=== PATIENT | female | born 1980 | race Caucasian/White ===

== ENCOUNTER → 2017-11-27 | Outpatient (CLI) | payer OTHER ==
[2017-11-27 12:12] LABS: BASO # 0.1 10^3/uL (0.0-0.2); BASO % 0.6 % (0.0-1.0); EOS # 0.3 10^3/uL (0.0-0.50); EOS % 3.1 % (0.0-3.0); HEMATOCRIT 45.2 % (36.0-47.0); IMMATURE GRANULOCYTE # 0.1 10^3/uL (0-0); IMMATURE GRANULOCYTE % 0.8 % (0-3.0); LYMPH # 2.3 10^3/uL (1.5-4.5); LYMPH % 25.9 % (24.0-44.0); MEAN CORPUSCULAR HGB CONC 33.2 g/dl (32.0-36.5); MEAN CORPUSCULAR VOLUME 96.4 fl (80.0-96.0); MONO # 0.8 10^3/uL (0.0-0.8); MONO % 8.7 % (0.0-5.0); NEUTROPHILS # 5.3 10^3/uL (1.8-7.7); NEUTROPHILS % 60.9 % (36.0-66.0); PLATELET COUNT, AUTOMATED 257 10^3/uL (150-450); RED BLOOD COUNT 4.69 10^6/uL (4.00-5.40); RED CELL DISTRIBUTION WIDTH 13.7 % (11.5-14.5); WHITE BLOOD COUNT 8.7 10^3/uL (4.0-10.0)
[2017-11-27 12:47] LABS: ALBUMIN 3.6 GM/DL (3.2-5.2); ALBUMIN/GLOBULIN RATIO 1.13 (1.00-1.93); ALKALINE PHOSPHATASE 83 U/L (45-117); ALT/SGPT 31 U/L (12-78); ANION GAP 9 MEQ/L (8-16); AST/SGOT 20 U/L (7-37); BILIRUBIN,TOTAL 0.5 MG/DL (0.2-1.0); BLOOD UREA NITROGEN 13 MG/DL (7-18); CALCIUM LEVEL 8.7 MG/DL (8.5-10.1); CARBON DIOXIDE LEVEL 26 MEQ/L (21-32); CHLORIDE LEVEL 110 MEQ/L (98-107); CHOLESTEROL LEVEL 171 MG/DL (<200); CHOLESTEROL RISK RATIO 4.885 (<5); CREATININE FOR GFR 0.76 MG/DL (0.55-1.30); GLOMERULAR FILTRATION RATE > 60.0 (>60); GLUCOSE, FASTING 87 MG/DL (70-100); HDL CHOLESTEROL 35 MG/DL (>40); NON-HDL-C 136 MG/DL; POTASSIUM SERUM 4.2 MEQ/L (3.5-5.1); SODIUM LEVEL 145 MEQ/L (136-145); THYROID STIMULATING HORMONE 0.771 uIU/ML (0.358-3.740); TOTAL PROTEIN 6.8 GM/DL (6.4-8.2); TRIGLYCERIDES LEVEL 150 MG/DL (<150)
== END ==
LOC: M LAB 11:25
DX: Z00.00 Encounter for general adult medical examination without abnormal findings (principal)
CPT/HCPCS: 84443

== ENCOUNTER → 2017-12-07 | Outpatient (CLI) | payer OTHER ==
[2017-12-07 17:03] LABS: ESTIMATED AVERAGE GLUCOSE 111 MG/DL (60-110); HEMOGLOBIN A1c 5.5 %
== END ==
LOC: M LAB 15:56
DX: Z00.00 Encounter for general adult medical examination without abnormal findings (principal)
CPT/HCPCS: 83036

== ENCOUNTER → 2018-05-01 | Outpatient (REF) | payer OTHER ==
[2018-05-01 22:18] LABS: APPEARANCE, URINE HAZY (CLEAR); BACTERIA, URINE AUTO NEGATIVE (NEGATIVE); BILIRUBIN, URINE AUTO NEGATIVE (NEGATIVE); BLOOD, URINE BLOOD 2+ (NEGATIVE); COLOR, URINE YELLOW (YELLOW); GLUCOSE, URINE (UA) AUTO NEGATIVE (NEGATIVE); KETONE, URINE AUTO TRACE mg/dL (NEGATIVE); LEUKOCYTE ESTERASE, URINE AUTO TRACE (NEGATIVE); MUCUS, URINE SMALL (NEGATIVE); NITRITE, URINE AUTO NEGATIVE (NEGATIVE); PROTEIN, URINE AUTO NEGATIVE (NEGATIVE); RBC, URINE AUTO 22 /HPF (0-3); SPECIFIC GRAVITY URINE AUTO 1.033 (1.002-1.035); SQUAMOUS EPITHELIAL CELL UR AU 6 /HPF (0-6); WBC, URINE AUTO 1 /HPF (0-3)
== END ==
LOC: M LAB REF 09:18
DX: N39.0 Urinary tract infection, site not specified (principal)
CPT/HCPCS: 81001

== ENCOUNTER → 2018-09-17 | Outpatient (REF) | payer MEDICAID, OTHER ==
[2018-09-17 20:58] LABS: CHLAMYDIA DNA AMPLIFICATION NEGATIVE (NEGATIVE); GC DNA AMPLIFICATION NEGATIVE (NEGATIVE)
== END ==
LOC: M LAB REF 17:49
PROVIDERS: ATTEND Physician Assistant Medical
DX: Z11.3 Encounter for screening for infections with a predominantly sexual mode of transmission (principal)

== ENCOUNTER → 2020-04-28 | Outpatient (REF) | payer OTHER | LOC: M LAB REF 19:57 | PROVIDERS: ATTEND Physician Assistant | DX: R30.0 Dysuria (principal) ==

== ENCOUNTER 2020-08-18 05:08 | Emergency (ER) | payer OTHER ==
[~2020-08-18] VITALS: Ht 165.1 cm; Wt 109.7 kg
[2020-08-18 05:09] VITALS: BP 154/88
[2020-08-18] MEDS ORDERED: AUGM875T28 PO (06:10)
[2020-08-18] MEDS ORDERED: PRED20TA PO (06:10)
== END 2020-08-18 06:20 | disposition home or self-care (01) ==
LOC: M ED 05:08
DX: J36 Peritonsillar abscess (principal); I10 Essential (primary) hypertension; F17.200 Nicotine dependence, unspecified, uncomplicated

== ENCOUNTER 2020-09-17 20:14 | Emergency (ER) | payer OTHER ==
[~2020-09-17] VITALS: Ht 162.6 cm; Wt 109.0 kg
[~2020-09-17 20:14] MED LIST: AUGM875T28 PO; PRED20TA PO
[2020-09-17] MEDS ORDERED: MONT10TA10 (20:27)
[2020-09-17] MEDS ORDERED: VITA50005 (20:27)
[2020-09-17] MEDS ORDERED: HYDR-3490 (20:27)
[2020-09-17] MEDS ORDERED: AMOX875T (20:27)
[2020-09-17] MEDS ORDERED: FLUTICASONE PROP 0.05% NASAL SPRAY 16 GM (FLONASE) NARES STA (21:46)
[2020-09-17] MEDS ORDERED: MAGIC MOUTHWASH SUSPENSION BTL SS STA (21:46)
[2020-09-17] MEDS ORDERED: BENZONATATE 100 MG CAP PO ONE (21:50)
--- NOTE | 2020-09-17 22:29 | REPVR ---
PROCEDURE INFORMATION: Exam: XR Chest Exam date and time: 09/17/20 (9:54pm) Age: 40 years old Clinical indication: Cough TECHNIQUE: Imaging protocol: XR of the chest Views: 2 views COMPARISON: No relevant prior studies available FINDINGS: Lungs: Unremarkable. No consolidation. Pleural spaces: Unremarkable. No pleural effusions. No pneumothorax. Heart/Mediastinum: Unremarkable. No cardiomegaly. Bones/joints: Unremarkable. IMPRESSION: No acute findings. Clear lung fernandez. Electronically signed by: Shweta Malcolm On 09/17/2020 22:29:45 PM
[2020-09-17 22:40] LABS: BASO # 0.1 10^3/uL (0.0-0.2); BASO % 0.5 % (0.0-1.0); EOS # 0.2 10^3/uL (0.0-0.5); EOS % 1.5 % (0.0-3.0); HEMATOCRIT 45.9 % (36.0-47.0); LYMPH # 2.4 10^3/uL (1.5-5.0); LYMPH % 19.3 % (24.0-44.0); MEAN CORPUSCULAR HEMOGLOBIN 32.1 pg (27.0-33.0); MEAN CORPUSCULAR HGB CONC 32.7 g/dl (32.0-36.5); MEAN CORPUSCULAR VOLUME 98.3 fl (80.0-96.0); MONO # 1.1 10^3/uL (0.0-0.8); MONO % 8.6 % (2.0-8.0); NEUTROPHILS # 8.6 10^3/uL (1.5-8.5); NEUTROPHILS % 69.3 % (36.0-66.0); PLATELET COUNT, AUTOMATED 274 10^3/uL (150-450); RED BLOOD COUNT 4.67 10^6/uL (4.00-5.40); WHITE BLOOD COUNT 12.4 10^3/uL (4.0-10.0)
[2020-09-17 22:59] LABS: ERYTHROCYTE SEDIMENTATION RATE 3 mm/hr (0-20)
[2020-09-17 23:02] LABS: C REACTIVE PROTEIN QUANTITATIV 0.57 MG/DL (0.00-0.30)
[2020-09-17 23:07] LABS: MONO REFLEX EBV COMP NEGATIVE (NEGATIVE)
[2020-09-17 23:14] LABS: RSV AMPLIFICATION NEGATIVE (NEGATIVE)
[2020-09-17] MEDS ORDERED: MAGICMW SSP (23:36)
[2020-09-17] MEDS ORDERED: FLON1SPR NARES (23:36)
[2020-09-18 00:12] VITALS: BP 144/87
[2020-09-20 13:09] LABS: EBV AB TO NUCLEAR ANTIGEN >600.0 U/mL (0.0-17.9); EBV VIRAL CAPSID AG IgG >600.0 U/mL (0.0-17.9); EBV VIRAL CAPSID AG IgM <36.0 U/mL (0.0-35.9)
== END 2020-09-18 00:15 | disposition home or self-care (01) ==
LOC: M ED 20:14
DX: R07.0 Pain in throat (principal); F17.200 Nicotine dependence, unspecified, uncomplicated

== ENCOUNTER → 2021-07-13 | Outpatient (CLI) | payer OTHER ==
[~2021-07-13] MED LIST changes: +AMOX875T; +ERGO500029; +FLON1SPR NARES; +HYDR-3490; +MAGICMW SSP; +MONT10TA97
== END ==
LOC: M WHC 09:03
PROVIDERS: ATTEND Advanced Practice Midwife
DX: Z12.31 Encounter for screening mammogram for malignant neoplasm of breast (principal)

== ENCOUNTER → 2021-07-13 | Outpatient (REF) | payer OTHER | LOC: M SFHCWAGY 17:02 | PROVIDERS: ATTEND Advanced Practice Midwife | DX: R87.613 High grade squamous intraepithelial lesion on cytologic smear of cervix (HGSIL) (principal); Z12.4 Encounter for screening for malignant neoplasm of cervix ==

== ENCOUNTER → 2021-09-28 | Outpatient (REF) | payer OTHER | LOC: M LAB REF 19:49 | PROVIDERS: ATTEND Physician Assistant | DX: J02.9 Acute pharyngitis, unspecified (principal) ==

== ENCOUNTER → 2021-11-02 | Outpatient (REF) | payer OTHER | LOC: M SFHCWAGY 17:19 | PROVIDERS: ATTEND Obstetrics & Gynecology | DX: R87.613 High grade squamous intraepithelial lesion on cytologic smear of cervix (HGSIL) (principal) ==

== ENCOUNTER → 2022-01-18 | Outpatient (CLI) | payer OTHER | LOC: M LABSMTC 10:45 | PROVIDERS: ATTEND Anesthesiology | DX: Z01.818 Encounter for other preprocedural examination (principal); Z11.52 Encounter for screening for COVID-19 ==

== ENCOUNTER 2022-01-23 14:08 | Day surgery (SDC) | payer OTHER ==
[~2022-01-23] VITALS: Ht 12.7 cm; Wt 2.0 kg
[2022-01-23] MEDS ORDERED: LR 1,000 ML IV SCH (14:30)
[2022-01-23 14:36] LABS: HEMATOCRIT 44.5 % (36.0-47.0); HEMOGLOBIN 14.8 g/dl (12.0-15.5); MEAN CORPUSCULAR HEMOGLOBIN 32.2 pg (27.0-33.0); MEAN CORPUSCULAR HGB CONC 33.3 g/dl (32.0-36.5); MEAN CORPUSCULAR VOLUME 96.9 fl (80.0-96.0); PLATELET COUNT, AUTOMATED 304 10^3/uL (150-450); RED BLOOD COUNT 4.59 10^6/uL (4.00-5.40); WHITE BLOOD COUNT 11.5 10^3/uL (4.0-10.0)
[2022-01-23 15:11] LABS: HCG, SERUM QUALITATIVE NEGATIVE (NEGATIVE)
[2022-01-23] MEDS ORDERED: LIDOCAINE 2% 100MG/5ML SDV (FOR ANES.) As Ordered ONE (16:20)
[2022-01-23] MEDS ORDERED: MIDAZOLAM INJ 2MG/2ML VIAL (J2250 PER 1MG) As Ordered ONE (16:20)
[2022-01-23] MEDS ORDERED: propofoL 200 MG/20 ML VIAL As Ordered ONE ×4 (16:20→17:30)
[2022-01-23] MEDS ORDERED: ONDANSETRON 4MG 2ML VIAL As Ordered ONE (16:22)
[2022-01-23] MEDS ORDERED: KETAMINE HCL 200 MG/20 ML VIAL As Ordered ONE ×2 (16:53→17:02)
[2022-01-23] MEDS ORDERED: LIDOCAINE W/EPINEPHRINE 1% 20ML VIAL As Ordered ONE (17:02)
[2022-01-23] MEDS ORDERED: IODINE STRONG SOLN 15 ML BTL As Ordered ONE (17:21)
[2022-01-23] MEDS ORDERED: KETOROLAC 60MG 2ML VIAL As Ordered ONE (17:25)
[2022-01-23] MEDS ORDERED: fentaNYL 100 MCG/2 ML INJECTION As Ordered ONE (17:27)
[2022-01-23] MEDS ORDERED: OXYC1TAB23 PO (17:58)
[2022-01-23 18:30] VITALS: BP 162/96
== END 2022-01-23 18:35 | disposition home or self-care (01) ==
LOC: M SDC 14:08
PROVIDERS: ATTEND Obstetrics & Gynecology
DX: D06.9 Carcinoma in situ of cervix, unspecified (principal); I10 Essential (primary) hypertension; F17.210 Nicotine dependence, cigarettes, uncomplicated; R51.9 Headache, unspecified
CPT/HCPCS: 36415; 57522; 84703; 85027; 86850; 86900; 86901; 88307; 88342; J1885; J2250; J2405; J3010

== ENCOUNTER 2022-06-08 09:58 | Emergency (ER) | payer OTHER ==
[~2022-06-08] VITALS: Ht 165.1 cm; Wt 120.6 kg
[~2022-06-08 09:58] MED LIST changes: +OXYC1TAB23 PO
[2022-06-08] MEDS ORDERED: ACET500P3 PO (10:21)
[2022-06-08] MEDS ORDERED: NAPR220C14 PO (10:21)
[2022-06-08] MEDS ORDERED: NS 1,000 ML IV ONE (15:35)
[2022-06-08] MEDS ORDERED: KETOROLAC 30 MG/ML 1ML VIAL IV ONE (15:35)
[2022-06-08] MEDS ORDERED: diphenhydrAMINE 50MG/ML VIAL IV ONE (15:35)
[2022-06-08] MEDS ORDERED: METOCLOPRAMIDE INJ 10MG/2ML VIAL IV ONE (15:35)
[2022-06-08 17:58] VITALS: BP 142/84
== END 2022-06-08 18:35 | disposition home or self-care (01) ==
LOC: M ED 09:58
DX: G43.909 Migraine, unspecified, not intractable, without status migrainosus (principal); I10 Essential (primary) hypertension; F41.9 Anxiety disorder, unspecified; F17.200 Nicotine dependence, unspecified, uncomplicated; Z79.1 Long term (current) use of non-steroidal anti-inflammatories (NSAID)

== ENCOUNTER → 2023-01-24 | Outpatient (CLI) | payer OTHER ==
[~2023-01-24] MED LIST changes: +ACET500P3 PO; +NAPR220C14 PO
== END ==
LOC: M WHC 15:36
PROVIDERS: ATTEND Nurse Practitioner Family
DX: Z12.31 Encounter for screening mammogram for malignant neoplasm of breast (principal)

== ENCOUNTER → 2023-04-25 | Outpatient (REF) | payer OTHER | LOC: M SFHCWAGY 15:43 | PROVIDERS: ATTEND Nurse Practitioner Family | DX: Z12.4 Encounter for screening for malignant neoplasm of cervix (principal); Z87.410 Personal history of cervical dysplasia; R87.613 High grade squamous intraepithelial lesion on cytologic smear of cervix (HGSIL); R87.810 Cervical high risk human papillomavirus (HPV) DNA test positive ==

== ENCOUNTER → 2023-06-05 | Outpatient (REF) | payer OTHER | LOC: M SFHCWAGY 15:33 | PROVIDERS: ATTEND Obstetrics & Gynecology | DX: R87.613 High grade squamous intraepithelial lesion on cytologic smear of cervix (HGSIL) (principal) ==

== ENCOUNTER → 2023-07-04 | Outpatient (CLI) | payer OTHER | LOC: M WHC 11:52 | PROVIDERS: ATTEND Obstetrics & Gynecology | DX: Z01.818 Encounter for other preprocedural examination (principal); D06.9 Carcinoma in situ of cervix, unspecified ==

== ENCOUNTER → 2023-08-29 | Outpatient (CLI) | payer OTHER | LOC: M WUC 08:35 | PROVIDERS: ATTEND Nurse Practitioner Adult Health | DX: J20.9 Acute bronchitis, unspecified (principal); M54.6 Pain in thoracic spine ==

== ENCOUNTER → 2023-12-04 | Outpatient (CLI) | payer MEDICAID, OTHER ==
[~2023-12-04] MED LIST changes: +METHACHOLINE KIT (6 VIAL.NEB PREMIX) INH ONE
== END ==
LOC: M CARPUL 08:14
PROVIDERS: ATTEND Internal Medicine Pulmonary Disease
DX: R05.9 Cough, unspecified (principal)

== ENCOUNTER → 2024-01-21 | Outpatient (REF) | payer OTHER ==
[~2024-01-21] MED LIST changes: -METHACHOLINE KIT (6 VIAL.NEB PREMIX) INH ONE
[2024-01-21 17:41] LABS: APPEARANCE, URINE HAZY (CLEAR); BACTERIA, URINE AUTO NEGATIVE (NEGATIVE); BILIRUBIN, URINE AUTO NEGATIVE (NEGATIVE); BLOOD, URINE BLOOD 2+ (NEGATIVE); COLOR, URINE YELLOW (YELLOW); GLUCOSE, URINE (UA) AUTO NEGATIVE (NEGATIVE); KETONE, URINE AUTO NEGATIVE (NEGATIVE); LEUKOCYTE ESTERASE, URINE AUTO NEGATIVE (NEGATIVE); MUCUS, URINE SMALL (NEGATIVE); NITRITE, URINE AUTO NEGATIVE (NEGATIVE); PROTEIN, URINE AUTO NEGATIVE (NEGATIVE); RBC, URINE AUTO 7 /HPF (0-3); SQUAMOUS EPITHELIAL CELL UR AU 5 /HPF (0-6); UROBILINOGEN, URINE AUTO 0.2 mg/dL (0.0-2.0); WBC, URINE AUTO 1 /HPF (0-3)
== END ==
LOC: M LAB REF 16:06
PROVIDERS: ATTEND Physician Assistant Medical
DX: N39.0 Urinary tract infection, site not specified (principal)

== ENCOUNTER → 2024-01-31 | Outpatient (CLI) | payer MEDICAID, OTHER ==
[~2024-01-31] MED LIST changes: +METHACHOLINE KIT (6 VIAL.NEB PREMIX) INH ONE
== END ==
LOC: M CARPUL 07:56
PROVIDERS: ATTEND Internal Medicine Pulmonary Disease
DX: R06.02 Shortness of breath (principal); R05.9 Cough, unspecified
CPT/HCPCS: 94070; 95070; J7674

== ENCOUNTER → 2024-03-06 | Outpatient (CLI) | payer OTHER ==
[~2024-03-06] MED LIST changes: -METHACHOLINE KIT (6 VIAL.NEB PREMIX) INH ONE
== END ==
LOC: M SLEEP HO 11:23
PROVIDERS: ATTEND Internal Medicine Pulmonary Disease
DX: R40.0 Somnolence (principal)

== ENCOUNTER 2024-05-14 09:13 | Emergency (ER) | payer OTHER ==
[2024-05-15] MEDS ORDERED: FAMO40TA3 (08:35)
[2024-05-15] MEDS ORDERED: SERTRALINE (08:35)
[2024-05-15] MEDS ORDERED: SYMB16INH (08:35)
[2024-05-15] MEDS ORDERED: IPRA0.00 (08:35)
[2024-05-15] MEDS ORDERED: LOSA100T5 (08:35)
[2024-05-15] MEDS ORDERED: NITR-67 PO (08:35)
[2024-05-15] MEDS ORDERED: ALBU8.5H (08:35)
[2024-05-15] MEDS ORDERED: KETO10TAB PO (10:22)
[2024-05-15] MEDS ORDERED: ONDA-282 PO (10:22)
[2024-05-15] MEDS ORDERED: FLOM0.4C39 PO (10:22)
[2024-05-15] MEDS ORDERED: COLA100C5 PO (10:23)
== END 2024-05-14 09:30 | disposition left against medical advice (07) ==
LOC: M ED 09:13
DX: Z53.21 Procedure and treatment not carried out due to patient leaving prior to being seen by health care provider (principal)

== ENCOUNTER 2024-05-15 08:23 | Emergency (ER) | payer OTHER ==
[~2024-05-15] VITALS: Ht 165.1 cm; Wt 120.4 kg
[2024-05-15 08:29] VITALS: BP 148/86; TEMP 96.8; O2SAT 97
[2024-05-15] MEDS ORDERED: NITR-67 PO (08:35)
[2024-05-15] MEDS ORDERED: IPRA0.00 (08:35)
[2024-05-15] MEDS ORDERED: ALBU8.5H (08:35)
[2024-05-15] MEDS ORDERED: SERTRALINE (08:35)
[2024-05-15] MEDS ORDERED: FAMO40TA3 (08:35)
[2024-05-15] MEDS ORDERED: SYMB16INH (08:35)
[2024-05-15] MEDS ORDERED: LOSA100T5 (08:35)
[2024-05-15 09:17] LABS: KETONE, URINE AUTO RFX TRACE mg/dL (NEGATIVE); LEUKOCYTE ESTERASE UR AUTO RFX NEGATIVE (NEGATIVE); MUCUS, URINE RFX SMALL (NEGATIVE); NITRITE, URINE AUTO RFX NEGATIVE (NEGATIVE); RBC, URINE AUTO RFX 27 /HPF (0-3); SQUAM EPITHELIAL CELL UR AURFX 8 /HPF (0-6); WBC, URINE AUTO RFX 2 /HPF (0-3)
[2024-05-15] MEDS: ONDANSETRON 4MG 2ML VIAL IV ONE (09:23)
[2024-05-15] MEDS: KETOROLAC 30 MG/ML 1ML VIAL IV ONE (09:23)
[2024-05-15 09:40] LABS: BASO % 0.3 % (0.0-1.0); EOS # 0.1 10^3/uL (0.0-0.5); EOS % 0.8 % (0.0-3.0); HEMATOCRIT 43.3 % (36.0-47.0); HEMOGLOBIN 14.4 g/dl (12.0-15.5); LYMPH # 2.2 10^3/uL (1.5-5.0); LYMPH % 14.5 % (24.0-44.0); MEAN CORPUSCULAR HEMOGLOBIN 32.4 pg (27.0-33.0); MEAN CORPUSCULAR HGB CONC 33.3 g/dl (32.0-36.5); MEAN CORPUSCULAR VOLUME 97.5 fl (80.0-96.0); MONO # 1.2 10^3/uL (0.0-0.8); MONO % 8.1 % (2.0-8.0); NEUTROPHILS # 11.4 10^3/uL (1.5-8.5); NEUTROPHILS % 74.6 % (36.0-66.0); PLATELET COUNT, AUTOMATED 271 10^3/uL (150-450); RED BLOOD COUNT 4.44 10^6/uL (4.00-5.40); WHITE BLOOD COUNT 15.3 10^3/uL (4.0-10.0)
[2024-05-15 10:03] LABS: LIPASE 32 U/L (12-53)
[2024-05-15 10:05] LABS: ALBUMIN 3.3 G/DL (3.2-5.2); ALKALINE PHOSPHATASE 77 U/L (35-104); ALT/SGPT 22 U/L (7.0-40); AST/SGOT 18 U/L (<34); BILIRUBIN,TOTAL 0.5 MG/DL (0.3-1.2); BLOOD UREA NITROGEN 14 MG/DL (9-23); CALCIUM LEVEL 8.9 MG/DL (8.5-10.1); CARBON DIOXIDE LEVEL 28 MMOL/L (20-31); CHLORIDE LEVEL 107 MMOL/L (98-107); CREATININE FOR GFR 0.74 MG/DL (0.55-1.30); GLOMERULAR FILTRATION RATE > 60.0 (>58); GLUCOSE, FASTING 95 MG/DL (60-100); POTASSIUM SERUM 3.9 MMOL/L (3.5-5.1); SODIUM LEVEL 142 MMOL/L (136-145); TOTAL PROTEIN 6.6 G/DL (5.7-8.2)
[2024-05-15] MEDS: MORPHINE 4 MG/ML 1ML VIAL IV ONE (10:21)
[2024-05-15] MEDS ORDERED: ONDA-282 PO (10:22)
[2024-05-15] MEDS ORDERED: KETO10TAB PO (10:22)
[2024-05-15] MEDS ORDERED: FLOM0.4C39 PO (10:22)
[2024-05-15] MEDS ORDERED: COLA100C5 PO (10:23)
== END 2024-05-15 10:35 | disposition home or self-care (01) ==
LOC: M ED 08:23
DX: R10.31 Right lower quadrant pain (principal); R31.9 Hematuria, unspecified; K59.00 Constipation, unspecified; F17.200 Nicotine dependence, unspecified, uncomplicated; Z79.52 Long term (current) use of systemic steroids; Z79.811 Long term (current) use of aromatase inhibitors; Z79.899 Other long term (current) drug therapy; Z79.2 Long term (current) use of antibiotics; Z79.83 Long term (current) use of bisphosphonates
CPT/HCPCS: 74176; 80053; 81001; 83690; 85025; 96374; 96375; 99284; J1885; J2405

== ENCOUNTER 2024-05-17 01:22 | Emergency (ER) | payer OTHER ==
[~2024-05-17] VITALS: Ht 152.4 cm; Wt 120.6 kg
[~2024-05-17 01:22] MED LIST changes: +ALBU8.5H; +COLA100C5 PO; +FAMO40TA3; +FLOM0.4C39 PO; +IPRA0.00; +KETO10TAB PO; +LOSA100T5; +NITR-67 PO; +ONDA-282 PO; +SERTRALINE; +SYMB16INH
[2024-05-17 01:28] VITALS: BP 135/68; TEMP 97.3; O2SAT 97
[2024-05-17] MEDS ORDERED: CYCL-707 PO (09:47)
== END 2024-05-17 03:58 | disposition left against medical advice (07) ==
LOC: M ED 01:22
DX: Z53.21 Procedure and treatment not carried out due to patient leaving prior to being seen by health care provider (principal)

== ENCOUNTER 2024-05-17 05:14 | Emergency (ER) | payer OTHER ==
[~2024-05-17] VITALS: Ht 165.1 cm; Wt 115.9 kg
[2024-05-17 05:41] LABS: BASO % 0.3 % (0.0-1.0); EOS # 0.1 10^3/uL (0.0-0.5); EOS % 0.4 % (0.0-3.0); HEMATOCRIT 40.2 % (36.0-47.0); HEMOGLOBIN 13.4 g/dl (12.0-15.5); LYMPH # 2.1 10^3/uL (1.5-5.0); LYMPH % 13.4 % (24.0-44.0); MEAN CORPUSCULAR HEMOGLOBIN 32.4 pg (27.0-33.0); MEAN CORPUSCULAR HGB CONC 33.3 g/dl (32.0-36.5); MEAN CORPUSCULAR VOLUME 97.1 fl (80.0-96.0); MONO # 1.4 10^3/uL (0.0-0.8); MONO % 8.9 % (2.0-8.0); NEUTROPHILS # 12.1 10^3/uL (1.5-8.5); PLATELET COUNT, AUTOMATED 253 10^3/uL (150-450); RED BLOOD COUNT 4.14 10^6/uL (4.00-5.40); WHITE BLOOD COUNT 15.9 10^3/uL (4.0-10.0)
[2024-05-17 06:09] LABS: BLOOD UREA NITROGEN 18 MG/DL (9-23); CALCIUM LEVEL 9.6 MG/DL (8.5-10.1); CARBON DIOXIDE LEVEL 26 MMOL/L (20-31); CHLORIDE LEVEL 106 MMOL/L (98-107); CK-MB VALUE MASS < 1.0 NG/ML (<3.6); CREATININE FOR GFR 0.75 MG/DL (0.55-1.30); GLOMERULAR FILTRATION RATE > 60.0 (>58); GLUCOSE, FASTING 115 MG/DL (60-100); POTASSIUM SERUM 3.4 MMOL/L (3.5-5.1); SODIUM LEVEL 141 MMOL/L (136-145)
[2024-05-17 06:31] LABS: CPK CREATINE PHOSPHOKINASE 89 U/L (34-145); MB/CK RELATIVE INDEX 1.12 (< OR =4)
[2024-05-17 06:47] LABS: KETONE, URINE AUTO RFX TRACE mg/dL (NEGATIVE); LEUKOCYTE ESTERASE UR AUTO RFX NEGATIVE (NEGATIVE); MUCUS, URINE RFX SMALL (NEGATIVE); NITRITE, URINE AUTO RFX NEGATIVE (NEGATIVE); RBC, URINE AUTO RFX 52 /HPF (0-3); SQUAM EPITHELIAL CELL UR AURFX 13 /HPF (0-6); WBC, URINE AUTO RFX 0 /HPF (0-3)
[2024-05-17] MEDS: ONDANSETRON 4MG 2ML VIAL IV ONE (07:51)
[2024-05-17] MEDS: CYCLOBENZAPRINE 10MG TABLET PO ONE (07:51)
[2024-05-17] MEDS: KETOROLAC 30 MG/ML 1ML VIAL IV ONE (07:52)
[2024-05-17] MEDS: MORPHINE 4 MG/ML 1ML VIAL IV PRN (07:52)
[2024-05-17 08:37] LABS: CK-MB VALUE MASS < 1.0 NG/ML (<3.6)
[2024-05-17 08:39] LABS: CPK CREATINE PHOSPHOKINASE 81 U/L (34-145); MB/CK RELATIVE INDEX 1.23 (< OR =4)
[2024-05-17 09:18] LABS: LIPASE 28 U/L (12-53)
[2024-05-17 09:20] LABS: ALBUMIN 3.3 G/DL (3.2-5.2); ALKALINE PHOSPHATASE 89 U/L (35-104); ALT/SGPT 19 U/L (7.0-40); AST/SGOT 17 U/L (<34); BILIRUBIN,DIRECT < 0.1 MG/DL (<0.4); BILIRUBIN,TOTAL 0.3 MG/DL (0.3-1.2); TOTAL PROTEIN 6.7 G/DL (5.7-8.2)
[2024-05-17 09:45] VITALS: BP 112/63; TEMP 99.3; O2SAT 95
[2024-05-17] MEDS ORDERED: CYCL-707 PO (09:47)
== END 2024-05-17 10:09 | disposition home or self-care (01) ==
LOC: M ED 05:14
DX: R31.9 Hematuria, unspecified (principal); M54.50 Low back pain, unspecified; K76.0 Fatty (change of) liver, not elsewhere classified; I45.10 Unspecified right bundle-branch block; I44.4 Left anterior fascicular block; I10 Essential (primary) hypertension; F41.9 Anxiety disorder, unspecified; F17.200 Nicotine dependence, unspecified, uncomplicated; J45.909 Unspecified asthma, uncomplicated; Z79.52 Long term (current) use of systemic steroids; Z79.83 Long term (current) use of bisphosphonates; Z79.899 Other long term (current) drug therapy
CPT/HCPCS: 76705; 80048; 80076; 81001; 82550; 82553; 83690; 84484; 85025; 87086; 93005; 96374; 96375; 99284; J1885; J2405

== ENCOUNTER → 2024-05-30 | Outpatient (REF) | payer OTHER ==
[~2024-05-30] MED LIST changes: +CYCL-707 PO
[2024-06-03 11:42] LABS: HPV APTIMA Detected (Not Detected)
== END ==
LOC: M SFHCWAGY 16:07
PROVIDERS: ATTEND Obstetrics & Gynecology
DX: D06.9 Carcinoma in situ of cervix, unspecified (principal)

== ENCOUNTER → 2024-06-03 | Outpatient (CLI) | payer OTHER | LOC: M WUC 10:59 | PROVIDERS: ATTEND Nurse Practitioner Adult Health | DX: M54.6 Pain in thoracic spine (principal); M54.2 Cervicalgia; M54.50 Low back pain, unspecified ==

== ENCOUNTER → 2024-06-09 | Outpatient (REF) | payer OTHER ==
[2024-06-09 13:45] LABS: APPEARANCE, URINE HAZY (CLEAR); BACTERIA, URINE AUTO NEGATIVE (NEGATIVE); BILIRUBIN, URINE AUTO NEGATIVE (NEGATIVE); BLOOD, URINE BLOOD 1+ (NEGATIVE); COLOR, URINE YELLOW (YELLOW); GLUCOSE, URINE (UA) AUTO NEGATIVE (NEGATIVE); KETONE, URINE AUTO NEGATIVE (NEGATIVE); LEUKOCYTE ESTERASE, URINE AUTO NEGATIVE (NEGATIVE); NITRITE, URINE AUTO NEGATIVE (NEGATIVE); PROTEIN, URINE AUTO NEGATIVE (NEGATIVE); RBC, URINE AUTO 0 /HPF (0-3); SPECIFIC GRAVITY URINE AUTO 1.011 (1.002-1.035); SQUAMOUS EPITHELIAL CELL UR AU 6 /HPF (0-6); UROBILINOGEN, URINE AUTO 0.2 mg/dL (0.0-2.0); WBC, URINE AUTO 0 /HPF (0-3)
== END ==
LOC: M SMT 13:11
PROVIDERS: ATTEND Physician Assistant
DX: R31.21 Asymptomatic microscopic hematuria (principal)

== ENCOUNTER → 2024-09-08 | Outpatient (REF) | payer OTHER | LOC: M SFHCWAGY 13:38 | PROVIDERS: ATTEND Obstetrics & Gynecology | DX: D06.9 Carcinoma in situ of cervix, unspecified (principal); N72 Inflammatory disease of cervix uteri ==

== ENCOUNTER 2024-09-26 09:29 | Day surgery (SDC) | payer OTHER ==
[~2024-09-26] VITALS: Ht 165.1 cm; Wt 119.3 kg
[~2024-09-26 09:29] MED LIST changes: +ACETAMINOPHEN 1000MG/100ML IV BAG As Ordered ONE; +DOCUSATE SODIUM 100MG CAPSULE PO SCH; -FAMO40TA3; +FAMO40TA3 PO; -FLOM0.4C39 PO; +IBUP-1022 PO; +IMMU1CHW PO; +KETOROLAC 30 MG/ML 1ML VIAL As Ordered ONE; +LIDOCAINE 2% 100MG/5ML SDV (FOR ANES.) As Ordered ONE; -LOSA100T5; +LOSA100T5 PO; +MIDAZOLAM INJ 2MG/2ML VIAL As Ordered ONE; +OMEG10002 PO; +ONDANSETRON 4MG 2ML VIAL As Ordered ONE; +ROCURONIUM BROMIDE 50MG/5ML VIAL As Ordered ONE; +SUGAMMADEX SODIUM 500 MG/5 ML VIAL (BRIDION) As Ordered ONE; +TAMS-18 PO; +VITA400T PO; +ZOLO100T PO; +fentaNYL 100 MCG/2 ML INJECTION As Ordered ONE; +propofoL 200 MG/20 ML VIAL As Ordered ONE
[2024-09-26] MEDS ORDERED: LR 1,000 ML IV SCH ×3 (09:45→13:45)
[2024-09-26 10:31] LABS: HEMATOCRIT 47.4 % (36.0-47.0); HEMOGLOBIN 15.5 g/dl (12.0-15.5); MEAN CORPUSCULAR HEMOGLOBIN 31.3 pg (27.0-33.0); MEAN CORPUSCULAR HGB CONC 32.7 g/dl (32.0-36.5); MEAN CORPUSCULAR VOLUME 95.6 fl (80.0-96.0); PLATELET COUNT, AUTOMATED 308 10^3/uL (150-450); RED BLOOD COUNT 4.96 10^6/uL (4.00-5.40); WHITE BLOOD COUNT 9.1 10^3/uL (4.0-10.0)
[2024-09-26 10:57] LABS: HCG, SERUM QUALITATIVE NEGATIVE (NEGATIVE)
[2024-09-26 10:58] LABS: BLOOD UREA NITROGEN 14 MG/DL (9-23); CALCIUM LEVEL 9.5 MG/DL (8.5-10.1); CARBON DIOXIDE LEVEL 29 MMOL/L (20-31); CHLORIDE LEVEL 107 MMOL/L (98-107); CREATININE FOR GFR 0.75 MG/DL (0.55-1.30); GLOMERULAR FILTRATION RATE > 90.0 (>58); GLUCOSE, FASTING 99 MG/DL (60-100); POTASSIUM SERUM 4.1 MMOL/L (3.5-5.1); SODIUM LEVEL 142 MMOL/L (136-145)
[2024-09-26] MEDS: ceFAZolin SOD 2 GM IV ONCE IV ONE (11:30)
[2024-09-26] MEDS: ceFAZolin 1GM VIAL As Ordered ONE (11:30)
[2024-09-26] MEDS ORDERED: HYDROmorphone HCL 2MG/ML 1ML VIAL As Ordered ONE (11:42)
[2024-09-26] MEDS ORDERED: GLYCOPYRROLATE INJ 0.2 MG/ML 2 ML VIAL As Ordered ONE (12:07)
[2024-09-26] MEDS: METHYLENE BLUE 0.5% (5MG/ML) 10 ML AMP (PROVAYBLUE) As Ordered ONE (12:33)
[2024-09-26] MEDS ORDERED: HYDROMORPHONE HCL 0.5 MG/ 0.5 ML SYRINGE IV PRN (13:25)
[2024-09-26] MEDS ORDERED: ONDANSETRON 4MG 2ML VIAL IV PRN ×2 (13:25→13:45)
[2024-09-26] MEDS ORDERED: fentaNYL 100 MCG/2 ML INJECTION IV PRN (13:25)
[2024-09-26] MEDS ORDERED: MORPHINE 4 MG/ML 1ML VIAL IV PRN (13:45)
[2024-09-26] MEDS ORDERED: PERCOCET 5MG/325MG TAB PO PRN ×2 (13:45)
[2024-09-26] MEDS ORDERED: IBUP80TA PO (13:58)
[2024-09-26] MEDS ORDERED: PERCOCET PO (13:58)
[2024-09-26] MEDS ORDERED: COLA100C5 PO (13:58)
[2024-09-26] MEDS: oxyCODONE 5MG TAB PO PRN (14:21)
[2024-09-26] MEDS: ceFAZolin SOD 3 GM in DEXTROSE 5% (D5W) MINI-BAG PLU 1... IV ONE (15:20)
[2024-09-26 15:31] VITALS: BP 132/85; TEMP 97.9; O2SAT 97
[2024-09-26] MEDS ORDERED: KETOROLAC 30 MG/ML 1ML VIAL IV SCH (20:00)
[2024-09-27] MEDS ORDERED: IBUPROFEN 800 MG TAB PO SCH (22:00)
== END 2024-09-26 16:25 | disposition home or self-care (01) ==
LOC: M SDC 09:29
PROVIDERS: ATTEND Obstetrics & Gynecology
DX: N87.9 Dysplasia of cervix uteri, unspecified (principal); D25.9 Leiomyoma of uterus, unspecified; N80.03 Adenomyosis of the uterus; D06.9 Carcinoma in situ of cervix, unspecified; E66.9 Obesity, unspecified; I10 Essential (primary) hypertension; J45.909 Unspecified asthma, uncomplicated; F17.210 Nicotine dependence, cigarettes, uncomplicated; Z79.899 Other long term (current) drug therapy
CPT/HCPCS: 11982; 36415; 58571; 80048; 84703; 85027; 86850; 86900; 86901; 88307; J0131; J0665; J0690; J1100; J1171; J1596; J1885; J2250; J2405; J3010; Q9968; S2900

== ENCOUNTER 2025-04-18 19:03 | Emergency (ER) | payer OTHER ==
[~2025-04-18] VITALS: Ht 165.1 cm; Wt 120.7 kg
[~2025-04-18 19:03] MED LIST changes: -ACETAMINOPHEN 1000MG/100ML IV BAG As Ordered ONE; -DOCUSATE SODIUM 100MG CAPSULE PO SCH; -IBUP-1022 PO; +IBUP600T42 PO; +IBUP80TA PO; -KETOROLAC 30 MG/ML 1ML VIAL As Ordered ONE; -LIDOCAINE 2% 100MG/5ML SDV (FOR ANES.) As Ordered ONE; -MIDAZOLAM INJ 2MG/2ML VIAL As Ordered ONE; -ONDANSETRON 4MG 2ML VIAL As Ordered ONE; +PERCOCET PO; -ROCURONIUM BROMIDE 50MG/5ML VIAL As Ordered ONE; -SUGAMMADEX SODIUM 500 MG/5 ML VIAL (BRIDION) As Ordered ONE; -fentaNYL 100 MCG/2 ML INJECTION As Ordered ONE; -propofoL 200 MG/20 ML VIAL As Ordered ONE
[2025-04-18 19:04] VITALS: BP 182/92; TEMP 97.8; O2SAT 98
[2025-04-18] MEDS ORDERED: IBUP200C28 PO (19:10)
== END 2025-04-18 22:15 | disposition left against medical advice (07) ==
LOC: M ED 19:03
DX: Z53.21 Procedure and treatment not carried out due to patient leaving prior to being seen by health care provider (principal)